=== PATIENT | female | born 1955 | race Caucasian/White ===

== ENCOUNTER 2016-11-08 13:48 | Emergency (ER) | payer BC, MEDICARE ==
[2016-11-08] MEDS ORDERED: IPRATROPIUM/ALBUTEROL (0.5MG/3MG) NEB INH ONE (14:12)
[2016-11-08] MEDS ORDERED: METHYLPREDNISOLONE PF 125MG/VIAL IVP SCH (14:15)
--- NOTE | 2016-11-08 14:17 | Emergency Department Record ---
History of Present Illness - General Chief Complaint: Cough Stated Complaint: cough,congestion, Time Seen by Provider: 11/08/16 14:02 Source: Patient Mode of Arrival: Ambulatory Limitations: No limitations - History of Present Illness Initial Comments: 61 yo female presents with cough and wheezing for about 5 days. She has a history of COPD, ESRD, prior pneumonia, AAA (repaired with an endovascular stent ). The cough has been bringing up phlegm. No blood. She has had subjective hot and cold flashes. No NVD. She was hospitalized in August and September for AAA repair with a stent and complications with seromas of the groin. PCP Venessa, Surgeon Venessa. MD Complaint: Cough, Nasal congestion Onset/Timin -: Days(s) Severity: Moderate Severity scale (1-10): 5 Consistency: Constant Improves With: Nothing Worsens With: Other (couging) Associated Symptoms: Chills, Cough, Fever - Related Data Home Medications Medication Instructions Recorded Confirmed Last Taken FA/Vit Bcomp&C/Zinc/Vitamin D3 1 tab PO DAILY 09/20/14 11/08/16 1 Day Ago [Dialyvite 800-Ultra D Tablet] Pramipexole Di-HCl [Mirapex] 0.75 mg PO BID 09/20/14 11/08/16 1 Day Ago Sevelamer Carbonate [Renvela] 3 tab PO WMEALS 09/20/14 11/08/16 1 Day Ago Furosemide [Lasix] 40 mg PO TID 03/08/15 11/08/16 1 Day Ago Albuterol Sulfate [Proair Hfa] 1 - 2 puff IH .EVERY 4-6 HOURS PRN 06/16/1511/08 1 Day Ago Metoprolol Succinate [Metoprolol 25 mg PO DAILY 07/17/16 11/08/16 1 Day Ago Succinate] Umeclidinium [place] [Incruse 62.5 mcg IH DAILY 11/08/16 11/08/16 1 Day Ago Ellipta] Vancomycin/0.9 % Sod Chloride 1.25 gm IV ASDIR 11/08/16 11/08/16 11/06/16 [Vanco 1.25 gm/250 ml-0.9% NaCl] Previous Rx's Medication Instructions Recorded Hydrocodone/Acetaminophen [[place] 1 tab PO Q8H PRN #15 tab 10/01/15 5mg/325mg] Azithromycin [Zithromax] 250 mg PO DAILY #4 tab 11/08/16 Prednisone [Prednisone 20Mg] 20 mg PO BID #10 tab 11/08/16 Allergies Allergy/AdvReac Type Severity Reaction Status Date / Time baclofen Allergy sleep Verified 11/08/16 14:05 walking cefaclor [From Ceclor] Allergy PT UNSURE Verified 11/08/16 14:05 OF REACTION clarithromycin [From Biaxin] Allergy PT UNSURE Verified 11/08/16 14:05 OF REACTION levofloxacin [From Levaquin] Allergy PT UNSURE Verified 11/08/16 14:05 OF REACTION naproxen sodium Allergy PT UNSURE Verified 11/08/16 14:05 [From Anaprox] OF REACTION piroxicam [From Feldene] Allergy PT UNSURE Verified 11/08/16 14:05 OF REACTION red dye Allergy HIVES Verified 11/08/16 14:05 succinylcholine Allergy "super Verified 11/08/16 14:05 glued my lungs together" sulfamethoxazole Allergy PT UNSURE Verified 11/08/16 14:05 [From Bactrim] OF REACTION tramadol HCl [From Ultram] Allergy PT UNSURE Verified 11/08/16 14:05 OF REACTION trimethoprim [From Bactrim] Allergy PT UNSURE Verified 11/08/16 14:05 OF REACTION venom-honey bee Allergy HIVES Verified 11/08/16 14:05 [bee venom (honey bee)] cyclobenzaprine HCl AdvReac BEHAVIORAL Verified 11/08/16 14:05 [From Flexeril] CHANGES gabapentin [From Neurontin] AdvReac "bad mojo" Verified 11/08/16 14:05 promethazine HCl AdvReac restless Verified 11/08/16 14:05 [From Phenergan] legs Travel Screening - Travel/Exposure Within Last 30 Days Have you traveled within the last 30 days?: No - Travel/Exposure Within Last Year Have you traveled outside the [place] in the last year?: No - Additonal Travel Details Have you been exposed to anyone with a communicable illness?: No - Travel Symptoms Symptom Screening: None Review of Systems Constitutional: Reports: Chills, Fever. Denies: Weakness Eyes: Denies: Eye discharge, Eye pain, Photophobia, Vision change ENT: Reports: Congestion Respiratory: Reports: Cough, Dyspnea, Wheezes. Denies: Hemoptysis, Stridor Cardiovascular: Denies: Chest pain, Palpitations, Syncope Endocrine: Denies: Polydipsia, Polyuria Gastrointestinal: Denies: Abdominal pain, Diarrhea, Nausea, Vomiting Genitourinary: Denies: Dysuria, Urgency Musculoskeletal: Denies: Arthralgia, Back pain, Myalgia, Neck pain Skin: Denies: Change in color Neurological: Denies: Confusion, Headache Psychiatric: Denies: Anxiety Hematological/Lymphatic: Denies: Blood Clots, Easy bleeding, Easy bruising, Swollen glands Past Medical History - SOCIAL HISTORY Smoking Status: Current every day smoker Alcohol Use: None Drug Use: None - RESPIRATORY Hx Respiratory Disorders: Yes Hx COPD: Yes Hx Pulmonary Embolism: Yes - CARDIOVASCULAR Hx Cardio Disorders: Yes Hx Abnormal EKG: Yes Comment:: heart murmur in April 2014, AAA - NEURO Hx Neuro Disorders: No - GI Hx GI Disorders: Yes Comment:: AAA - Hx Genitourinary Disorders: Yes Hx Dialysis: Yes (M_W_F) Hx Renal Disease: Yes (polycystic kidney disease) Comment:: PKD. prolapsed bladder - ENDOCRINE Hx Endocrine Disorders: No - MUSCULOSKELETAL Hx Musculoskeletal Disorders: Yes Hx Arthritis: Yes - PSYCH Hx Psych Problems: Yes Hx Depression: Yes (r/t dialysis) - HEMATOLOGY/ONCOLOGY Hx Hematology/Oncology Disorders: Yes Hx Clotting Problems: Yes Family Medical History Any Significant Family History?: Yes Hx Alcohol Use: Father, Brother/Sister Hx Cancer: Grandparents Hx Dementia: Father Hx Diabetes: Mother Hx Heart Disease: Father, Mother Hx HTN: Mother Hx Kidney Disease: Mother, Brother/Sister, Grandparents Hx Resp Disorders: Father Hx Stroke: Father, Mother Physical Exam - General General Appearance: Alert, Oriented x3, Cooperative, No acute distress Limitations: No limitations - Head Head exam: Normal inspection - Eye Eye exam: Normal appearance, PERRL. negative: Conjunctival injection, Scleral icterus - ENT ENT exam: Normal exam, Mucous membranes moist Ear exam: Normal external inspection Nasal Exam: Discharge. negative: Normal inspection Mouth exam: Normal external inspection Teeth exam: Normal inspection Throat exam: Normal inspection - Neck Neck exam: Normal inspection, Full ROM. negative: Tenderness - Respiratory Respiratory exam: Decreased breath sounds, Rhonchi, Wheezes (diffuse, moderate throughout). negative: Accessory muscle use, Prolonged expiratory, Respiratory distress - Cardiovascular Cardiovascular Exam: Regular rate, Normal rhythm, Normal heart sounds Peripheral Pulses: 2+: Radial (R), Radial (L) - GI/Abdominal GI/Abdominal exam: Soft. negative: Distended, Guarding, Rebound, Rigid, Tenderness - Rectal Rectal exam: Deferred - exam: Deferred - Extremities Extremities exam: Normal inspection, Full ROM, Normal capillary refill, Other ( Drain in right surgical sight). negative: Tenderness - Back Back exam: Reports: Normal inspection, Full ROM. Denies: Muscle spasm, Rash noted, Tenderness - Neurological Neurological exam: Alert, Normal gait, Oriented X3, Reflexes normal - Psychiatric Psychiatric exam: Normal affect, Normal mood - Skin Skin exam: Dry, Intact, Normal color, Warm Course Vital Signs 11/08/16 13:52 Temperature 97.3 F L Pulse Rate 87 Respiratory 20 Rate Blood Pressure 149/81 Pulse Ox 93 L - Reevaluation(s) Reevaluation #1: DC summary requested from [facility] 11/08/16 14:17 Reevaluation #2: The labs were reviewed No acute changes of the CBC. Chronic anemia CMP with mild increase of K at 5.8 CXR No infiltrate, mild PVC. 11/08/16 15:35 Reevaluation #3: The patient is feeling much better. We discussed options. Her labs are at baseline and she is not hypoxic She prefers DC home with 7am HD to follow We discussed home care with Zithromax, Prednsione, and Albuterol Q4H She and her daughter are both in favor of this plan. 11/08/16 16:09 Medical Decision Making - Lab Data Result diagrams: 11/08/16 14:30 11/08/16 14:30 Disposition Disposition: Discharge Clinical Impression: COPD exacerbation Disposition: Home, Self-Care Condition: (2) Stable Instructions: COPD Exacerbation, Learning Developer (GEN) Additional Instructions: Immediately return to the ED if worse or any new symptoms or concerns Go to dialysis in the morning as scheduled Prescriptions: Prednisone [Prednisone 20Mg] 20 mg PO BID #10 tab Azithromycin [Zithromax] 250 mg PO DAILY #4 tab Forms: Patient Portal Access Time of Disposition: 16:13
[2016-11-08 14:37] LABS: BASO % 0.2 % (0-6); EOS % 0.9 % (0-6); GRAN % 69.5 % (47-80); HEMATOCRIT 32.3 % (35.0-47.0); HEMOGLOBIN 10.4 gm/dl (11.6-16.0); LYMPH % 20.7 % (16-45); MEAN CELL VOLUME 101.3 fl (81-97); MEAN CORPUSCULAR HEMOGLOBIN 32.6 pg (27-33); MEAN CORPUSCULAR HGB CONC 32.2 g/dl (32-36); MEAN PLATELET VOLUME 9.9 fl (7.4-10.4); MONO % 8.7 % (0-9); RED BLOOD COUNT 3.19 M/uL (3.80-5.40); RED CELL DISTRIBUTION WIDTH 15.2 % (11.5-14.5); WHITE BLOOD COUNT W/O DIFF 4.6 K/uL (4.2-12.2)
[2016-11-08 14:41] LABS: PLATELET COUNT 91 K/uL (130-400)
[2016-11-08 14:54] LABS: INR 0.97; PARTIAL THROMBOPLASTIN TIME 28.2 SECONDS (24.5-39.1)
[2016-11-08 14:55] LABS: ALB/GLOB RATIO 1.4 (1.1-1.8); ALBUMIN 3.6 gm/dL (3.5-5.0); ANION GAP 14.8 (7-16); BILIRUBIN,TOTAL 1.18 mg/dL (0.2-1.3); CARBON DIOXIDE 23.2 mmol/L (22-30); CREATININE 7.3 mg/dL (0.52-1.04); TOTAL PROTEIN 6.2 gm/dL (6.3-8.2)
[2016-11-08] MEDS ORDERED: AZITHROMYCIN 500 MG TABLET PO ONE (16:10)
--- NOTE | 2016-11-12 10:55 | RADIOLOGY REPORT ---
EXAM: CHEST HISTORY: SHORTNESS OF BREATH. TECHNIQUE: Two views of the chest were obtained. Comparison: 06/18/15. FINDINGS: The cardiac silhouette is enlarged. There is prominence of the interstitial lung markings increased from the patient's previous study. There are small bilateral pleural effusions. No focal area of lung consolidation identified. The lungs appear hyperinflated. IMPRESSION: 1. PROMINENCE OF THE INTERSTITIAL LUNG MARKINGS AND SMALL BILATERAL PLEURAL EFFUSIONS LIKELY THE RESULT OF PULMONARY VASCULAR CONGESTION. 2. THE LUNGS ARE HYPERINFLATED. JOB NUMBER: [id number] [facility]
== END 2016-11-08 16:47 | disposition home or self-care (01) ==
LOC: ER 13:48
DX: J44.1 Chronic obstructive pulmonary disease with (acute) exacerbation (principal); R06.02 Shortness of breath; F17.210 Nicotine dependence, cigarettes, uncomplicated; D64.9 Anemia, unspecified
CPT/HCPCS: 71020; 80053; 85025; 85610; 85730; 94640; 96374; 99284; J2930

== ENCOUNTER 2017-02-28 12:43 | Emergency (ER) | payer MEDICARE, BC, MEDICAID ==
--- NOTE | 2017-02-28 12:55 | Emergency Department Record ---
History of Present Illness - General Chief Complaint: Difficulty Breathing Stated Complaint: NAM/COPD Time Seen by Provider: 02/28/17 12:54 Source: Patient Mode of Arrival: Ambulatory Limitations: No limitations - History of Present Illness Initial Comments: The patient is here due to trouble breathing and wheezing for 7-8 hours. She denies any CP but is having a cough. The patient is a renal failure patient and does get hemodialysis 3 times a week. She last had dialysis 2 days ago but did not complete her run due to vomiting. She stopped it about 40 minutes short. Now she feels like she is retaining fluid. There has been no fever, chills, or headaches. The patient states her HR was 106 at home and her RA biox 93% so she became concerned. MD Complaint: Cough, Shortness of breath Onset/Timin -: Hour(s) Consistency: Intermittent Worsens With: Nothing Associated Symptoms: Cough, Sputum production, Other Treatments Prior to Arrival: None, Other - Related Data Home Oxygen Therapy: Yes (as needed) Home Oxygen Amount: 2 Liters Home Medications Medication Instructions Recorded Confirmed Last Taken FA/Vit Bcomp&C/Zinc/Vitamin D3 1 tab PO DAILY 09/20/14 02/28/17 02/28/17 [Dialyvite 800-Ultra D Tablet] Pramipexole Di-HCl [Mirapex] 0.75 mg PO BID 09/20/14 02/28/17 02/28/17 Sevelamer Carbonate [Renvela] 3 tab PO WMEALS 09/20/14 02/28/17 02/28/17 Furosemide [Lasix] 40 mg PO TID 03/08/15 02/28/17 02/28/17 Albuterol Sulfate [Proair Hfa] 1 - 2 puff IH .EVERY 4-6 HOURS PRN 06/16/1502/2802/28/17 Umeclidinium [place] [Incruse 62.5 mcg IH DAILY 11/08/16 02/28/17 02/28/17 Ellipta] Acetaminophen [Arthritis Pain 650 mg PO ASDIR 02/28/17 02/28/17 Unknown Relief] Acetaminophen [Tylenol Extra 500 mg PO ASDIR 02/28/17 02/28/17 Unknown Strength] Guaifenesin [Mucinex] 600 mg PO BID 02/28/17 02/28/17 Unknown Rotigotine [Neupro] 1 each TD DAILY 02/28/17 02/28/17 Unknown Sodium Polystyrene Sulfon/Sorb 15 gm PO WEEKLY 02/28/17 02/28/17 Unknown [Kionex 15 gm/60 ml Suspension] Previous Rx's Medication Instructions Recorded Hydrocodone/Acetaminophen [[place] 1 tab PO Q8H PRN #15 tab 10/01/15 5mg/325mg] Allergies Allergy/AdvReac Type Severity Reaction Status Date / Time baclofen Allergy sleep Verified 02/28/17 12:57 walking cefaclor [From Ceclor] Allergy PT UNSURE Verified 02/28/17 12:57 OF REACTION clarithromycin [From Biaxin] Allergy PT UNSURE Verified 02/28/17 12:57 OF REACTION levofloxacin [From Levaquin] Allergy PT UNSURE Verified 02/28/17 12:57 OF REACTION naproxen sodium Allergy PT UNSURE Verified 02/28/17 12:57 [From Anaprox] OF REACTION piroxicam [From Feldene] Allergy PT UNSURE Verified 02/28/17 12:57 OF REACTION red dye Allergy HIVES Verified 02/28/17 12:57 succinylcholine Allergy "super Verified 02/28/17 12:57 glued my lungs together" sulfamethoxazole Allergy PT UNSURE Verified 02/28/17 12:57 [From Bactrim] OF REACTION tramadol HCl [From Ultram] Allergy PT UNSURE Verified 02/28/17 12:57 OF REACTION trimethoprim [From Bactrim] Allergy PT UNSURE Verified 02/28/17 12:57 OF REACTION venom-honey bee Allergy HIVES Verified 02/28/17 12:57 [bee venom (honey bee)] cyclobenzaprine HCl AdvReac BEHAVIORAL Verified 02/28/17 12:57 [From Flexeril] CHANGES gabapentin [From Neurontin] AdvReac "bad mojo" Verified 02/28/17 12:57 promethazine HCl AdvReac restless Verified 02/28/17 12:57 [From Phenergan] legs Travel Screening - Travel/Exposure Within Last 30 Days Have you traveled within the last 30 days?: No Review of Systems Constitutional: Denies: Chills, Fever Eyes: Denies: Eye discharge ENT: Reports: Congestion Respiratory: Reports: Cough, Dyspnea. Denies: Hemoptysis Cardiovascular: Denies: Chest pain Past Medical History - SOCIAL HISTORY Smoking Status: Current every day smoker Drug Use: None - RESPIRATORY Hx Respiratory Disorders: Yes Hx COPD: Yes Hx Pulmonary Embolism: Yes - CARDIOVASCULAR Hx Cardio Disorders: Yes Hx Abnormal EKG: Yes Comment:: heart murmur in April 2014, AAA - NEURO Hx Neuro Disorders: No - GI Hx GI Disorders: Yes Comment:: AAA - Hx Genitourinary Disorders: Yes Hx Dialysis: Yes (M_W_F) Hx Renal Disease: Yes (polycystic kidney disease) Comment:: PKD. prolapsed bladder - ENDOCRINE Hx Endocrine Disorders: No - MUSCULOSKELETAL Hx Musculoskeletal Disorders: Yes Hx Arthritis: Yes - PSYCH Hx Psych Problems: Yes Hx Depression: Yes (r/t dialysis) - HEMATOLOGY/ONCOLOGY Hx Hematology/Oncology Disorders: Yes Hx Clotting Problems: Yes Family Medical History Hx Alcohol Use: Father, Brother/Sister Hx Cancer: Grandparents Hx Dementia: Father Hx Diabetes: Mother Hx Heart Disease: Father, Mother Hx HTN: Mother Hx Kidney Disease: Mother, Brother/Sister, Grandparents Hx Resp Disorders: Father Hx Stroke: Father, Mother Physical Exam - General General Appearance: Alert, Oriented x3, Cooperative, No acute distress - Head Head exam: Atraumatic, Normocephalic, Normal inspection - Eye Eye exam: Normal appearance, PERRL - ENT Throat exam: Normal inspection. negative: Tonsillar erythema, Tonsillar exudate - Neck Neck exam: Normal inspection, Full ROM. negative: Tenderness - Respiratory Respiratory exam: Accessory muscle use (mild.), Rales, Wheezes. negative: Normal lung sounds bilaterally, Respiratory distress, Stridor - Cardiovascular Cardiovascular Exam: Regular rate, Normal rhythm, Gallop (S3), Tachycardia - GI/Abdominal GI/Abdominal exam: Soft, Normal bowel sounds. negative: Tenderness - Extremities Extremities exam: Pedal edema (2+). negative: Normal inspection - Neurological Neurological exam: Alert, Normal gait. negative: Abnormal gait, Motor sensory deficit Course Vital Signs 02/28/17 12:46 Temperature 97.6 F Pulse Rate 94 H Respiratory 24 Rate Blood Pressure 150/93 Pulse Ox 93 L - Reevaluation(s) Reevaluation #1: The patient is doing well at this time on oxygen and after the neb tx. She is breathing easier and denies any pain. I did discuss the issues with the patient' s Nephrology group instrument and control service person physician who is Dr. Betancourt in AA at [facility] and he would like her transferred there for emergent hemodialysis. 02/28/17 14:10 Reevaluation #2: The patient now is reluctant to go to . She would like us to try to admit her to [place]. 02/28/17 14:36 Reevaluation #3: I did discuss the case with Dr. Roper (Nephrology) at [facility] and he does agree to perform hemodialysis if the patient can be transported to the ER at [facility]. The patient does also agree to the plan. I then did discuss the case with Dr. Chirinos in the ER and he does accept the patient in an ER to ER transfer. I did discuss the transfer at length with the patient and did recommend transfer by Ambulance. The patient is very adamant about refusing the ambulance and wants her daughters to drive her there. I then discussed the risks of leaving by car which include worsening shortness of breath, respiratory failure , heart failure, disability and and the patient accepts the risks. She understands we cannot be held liable for NOT tranferring her by ambulance and will leave AMA. 02/28/17 14:43 Medical Decision Making - Data Complexity MDM Data: Labs Ordered and/or Reviewed, X-Ray Ordered and/or Reviewed, EKG Ordered and/or Reviewed - Lab Data Result diagrams: 02/28/17 13:14 02/28/17 13:14 - EKG Data -: EKG Interpreted by Me EKG: No Acute Changes, Unchanged From Previous - Radiology Data Radiology results: Report reviewed, Image reviewed (CXR: CMG with CHF and bilateral effusions.) Disposition Disposition: Transfer Clinical Impression: Renal failure CHF (congestive heart failure) Qualifiers: Congestive heart failure type: unspecified congestive heart failure type Congestive heart failure chronicity: unspecified congestive heart failure chronicity Qualified Code(s): I50.9 - Heart failure, unspecified Disposition: Against Medical Advice Transfer To: [facility] Reason For Transfer: Dialysis Accepting Physician: Cassia Time Discussed w/Accepting Physician: 14:52 Condition: (2) Stable Forms: Patient Portal Access Time of Disposition: 14:52
[2017-02-28 13:18] LABS: BASO % 0.5 % (0-6); EOS % 2.1 % (0-6); HEMATOCRIT 37.7 % (35.0-47.0); HEMOGLOBIN 12.1 gm/dl (11.6-16.0); LYMPH % 18.3 % (16-45); MEAN CELL VOLUME 101.3 fl (81-97); MEAN CORPUSCULAR HEMOGLOBIN 32.5 pg (27-33); MEAN CORPUSCULAR HGB CONC 32.1 g/dl (32-36); MEAN PLATELET VOLUME 10.6 fl (7.4-10.4); MONO % 8.1 % (0-9); PLATELET COUNT 132 K/uL (130-400); RED BLOOD COUNT 3.72 M/uL (3.80-5.40); RED CELL DISTRIBUTION WIDTH 16.6 % (11.5-14.5); WHITE BLOOD COUNT W/O DIFF 6.3 K/uL (4.2-12.2)
[2017-02-28 13:30] LABS: ANION GAP 14.6 (7-16); CARBON DIOXIDE 23.4 mmol/L (22-30)
[2017-02-28 13:32] LABS: INR 0.94; PARTIAL THROMBOPLASTIN TIME 22.1 SECONDS (24.5-39.1); PROTHROMBIN TIME (PATIENT) 10.6 SECONDS (9.5-12.1)
[2017-02-28] MEDS ORDERED: IPRATROPIUM/ALBUTEROL (0.5MG/3MG) NEB INH ONE (13:40)
[2017-02-28 13:53] LABS: CKMB 2.6 ug/L (0-6)
[2017-02-28] MEDS ORDERED: FUROSEMIDE IV 40MG/4ML VIAL IVP ONE (14:24)
== END 2017-02-28 15:11 | disposition left against medical advice (07) ==
LOC: ER 12:43
DX: N18.6 End stage renal disease (principal); Z99.2 Dependence on renal dialysis; I50.9 Heart failure, unspecified; J44.9 Chronic obstructive pulmonary disease, unspecified; R06.02 Shortness of breath; R11.11 Vomiting without nausea; F17.210 Nicotine dependence, cigarettes, uncomplicated
CPT/HCPCS: 71010; 80048; 82550; 82553; 85025; 85610; 85730; 93005; 93010; 94640; 96374; 99285; J1940

== ENCOUNTER 2017-06-08 22:50 | Emergency (ER) | payer MEDICARE, BC, MEDICAID ==
--- NOTE | 2017-06-08 23:43 | Emergency Department Record ---
History of Present Illness - General Chief Complaint: Animal Bite Stated Complaint: ANIMAL BITE Time Seen by Provider: 06/08/17 23:21 Source: Patient Mode of Arrival: Ambulatory Limitations: No limitations - History of Present Illness Initial Comments: The patient is here due to sustaining an injury to the L hand dorsally. Her pet rabbit scratched the back of her L hand and she has multiple skin tears. She states her Td is UTD. Complaint: Other Onset/Timin -: Hour(s) Animal: Other Description: Household pet Mechanism: Scratch Severity scale (1-10): 5 Context: Other Associated Symptoms: None Treatments Prior to Arrival: Wound dressing(s), Irrigation - Related Data Patient Tetanus UTD (within 5 yrs): Yes Home Medications Medication Instructions Recorded Confirmed Last Taken [place] AC/Vit Bcomp,C/Zn/Vit D3 1 tab PO DAILY 09/20/14 06/08/17 02/28/17 [Dialyvite 800-Ultra D Tablet] Pramipexole Di-HCl [Mirapex] 0.75 mg PO BID 09/20/14 06/08/17 02/28/17 Sevelamer Carbonate [Renvela] 3 tab PO WMEALS 09/20/14 06/08/17 02/28/17 Furosemide [Lasix] 80 mg PO TID 03/08/15 06/08/17 02/28/17 Albuterol Sulfate [Proair Hfa] 1 - 2 puff IH .EVERY 4-6 HOURS PRN 06/16/1506/0802/28/17 Umeclidinium [place] [Incruse 62.5 mcg IH DAILY 11/08/16 06/08/17 02/28/17 Ellipta] Guaifenesin [Mucinex] 600 mg PO BID 02/28/17 06/08/17 Unknown Rotigotine [Neupro] 1 each TD DAILY 02/28/17 06/08/17 Unknown Sodium Polystyrene Sulfon/Sorb 15 gm PO WEEKLY 02/28/17 02/28/17 Unknown [Kionex 15 gm/60 ml Suspension] Previous Rx's Medication Instructions Recorded Hydrocodone/Acetaminophen [[place] 1 tab PO Q8H PRN #15 tab 10/01/15 5mg/325mg] Cephalexin [Keflex] 500 mg PO DAILY #2 cap 06/09/17 Allergies Allergy/AdvReac Type Severity Reaction Status Date / Time baclofen Allergy sleep Verified 02/28/17 12:57 walking cefaclor [From Ceclor] Allergy PT UNSURE Verified 02/28/17 12:57 OF REACTION clarithromycin [From Biaxin] Allergy PT UNSURE Verified 02/28/17 12:57 OF REACTION levofloxacin [From Levaquin] Allergy PT UNSURE Verified 02/28/17 12:57 OF REACTION naproxen sodium Allergy PT UNSURE Verified 02/28/17 12:57 [From Anaprox] OF REACTION piroxicam [From Feldene] Allergy PT UNSURE Verified 02/28/17 12:57 OF REACTION red dye Allergy HIVES Verified 02/28/17 12:57 succinylcholine Allergy "super Verified 02/28/17 12:57 glued my lungs together" sulfamethoxazole Allergy PT UNSURE Verified 02/28/17 12:57 [From Bactrim] OF REACTION tramadol HCl [From Ultram] Allergy PT UNSURE Verified 02/28/17 12:57 OF REACTION trimethoprim [From Bactrim] Allergy PT UNSURE Verified 02/28/17 12:57 OF REACTION venom-honey bee Allergy HIVES Verified 02/28/17 12:57 [bee venom (honey bee)] cyclobenzaprine HCl AdvReac BEHAVIORAL Verified 02/28/17 12:57 [From Flexeril] CHANGES gabapentin [From Neurontin] AdvReac "bad mojo" Verified 02/28/17 12:57 promethazine HCl AdvReac restless Verified 02/28/17 12:57 [From Phenergan] legs Travel Screening - Travel/Exposure Within Last 30 Days Have you traveled within the last 30 days?: No - Travel/Exposure Within Last Year Have you traveled outside the [place] in the last year?: No - Additonal Travel Details Have you been exposed to anyone with a communicable illness?: No - Travel Symptoms Symptom Screening: None Past Medical History - SOCIAL HISTORY Smoking Status: Current every day smoker Alcohol Use: None Drug Use: None - RESPIRATORY Hx Respiratory Disorders: Yes Hx COPD: Yes Hx Pulmonary Embolism: Yes - CARDIOVASCULAR Hx Cardio Disorders: Yes Hx Abnormal EKG: Yes Comment:: heart murmur in April 2014, AAA - NEURO Hx Neuro Disorders: No - GI Hx GI Disorders: Yes Comment:: AAA - Hx Genitourinary Disorders: Yes Hx Dialysis: Yes (M_W_F) Hx Renal Disease: Yes (polycystic kidney disease) Comment:: PKD. prolapsed bladder. end stage renal - ENDOCRINE Hx Endocrine Disorders: No - MUSCULOSKELETAL Hx Musculoskeletal Disorders: Yes Hx Arthritis: Yes Comment:: restless leg syndrome - PSYCH Hx Psych Problems: Yes Hx Depression: Yes (r/t dialysis) - HEMATOLOGY/ONCOLOGY Hx Hematology/Oncology Disorders: Yes Hx Clotting Problems: Yes Comment:: visually impared Family Medical History Any Significant Family History?: Yes Hx Alcohol Use: Father, Brother/Sister Hx Cancer: Grandparents Hx Dementia: Father Hx Diabetes: Mother Hx Heart Disease: Father, Mother Hx HTN: Mother Hx Kidney Disease: Mother, Brother/Sister, Grandparents Hx Resp Disorders: Father Hx Stroke: Father, Mother Physical Exam - General General Appearance: Alert, Cooperative, No acute distress - Head Head exam: Atraumatic, Normocephalic, Normal inspection - Extremities Extremities exam: Full ROM, Tenderness. negative: Normal inspection (There are multiple skin tears to the dorsal L hand. The affected skin is very thin and chronically discolored.) - Neurological Neurological exam: Normal gait. negative: Abnormal gait, Motor sensory deficit Course Vital Signs 06/08/17 23:11 Temperature 98.3 F Pulse Rate 85 Respiratory 20 Rate Blood Pressure 147/84 Pulse Ox 91 L - Reevaluation(s) Reevaluation #1: Procedure note: The dorsal L hand lacs were anesth. with TLE. The wound were then cleansed with sterile water and betadine. The wounds area all very superficial and the skin extremely thin. Due to that fact the mail flap was trimmed minimally and no sutures were placed. 06/09/17 00:02 Disposition Disposition: Discharge Clinical Impression: Animal scratch Disposition: Home, Self-Care Condition: (1) Good Instructions: Animal Bite (ED) Additional Instructions: Please leave the bandage in place clean and dry until Wednesday. Please wash the wound daily after Wednesday and dress with Abx ointment daily until healed. Take the Keflex as directed after HD. Return to the ER for any signs of infection. Prescriptions: Cephalexin [Keflex] 500 mg PO DAILY #2 cap Forms: Patient Portal Access Time of Disposition: 00:06 Quality - Quality Measures Quality Measures: N/A - Blood Pressure Screening View Details: Yes Blood Pressure Classification: Pre-Hypertensive BP Reading Systolic Measurement: 147 Diastolic Measurement: 84 Screening for High Blood Pressure: < Pre-Hypertensive BP, F/U Documented > [ [id number]] Pre-Hypertensive Follow-up Interventions: Follow-up with rescreen every year.
[2017-06-08] MEDS: TOPICAL LIDOCAINE W/ EPI 5 ML TOP ONE (23:49)
[2017-06-09] MEDS: CEPHALEXIN 500 MG CAPSULE PO STA (00:11)
== END 2017-06-09 00:16 | disposition home or self-care (01) ==
LOC: ER 22:50
DX: S60.512A Abrasion of left hand, initial encounter (principal); Y93.K9 Activity, other involving animal care; Y92.009 Unspecified place in unspecified non-institutional (private) residence as the place of occurrence of the external cause
CPT/HCPCS: 99283

== ENCOUNTER 2017-11-05 00:03 | Emergency (ER) | payer MEDICARE, BC, MEDICAID ==
--- NOTE | 2017-11-05 00:59 | Emergency Department Record ---
History of Present Illness - General Chief complaint: Lower Extremity Pain Stated complaint: "I THINK IM GETTING CELLULITIS" Time Seen by Provider: 11/05/17 00:06 Source: Patient Mode of Arrival: Wheelchair Limitations: No limitations - History of Present Illness Initial comments: pt thinks she has cellulitis again. she has a tender, red, hot lower leg and also has a second spot of tenderness in the calf. she has dialysis tomorrow. she has a complex health hx and is on plavix and asa. shes had a recent mi, AAA repair, chf MD Complaint: Extremity pain, Extremity swelling Onset/Timin -: Hour(s) Location: Right, Lower Leg Severity scale (1-10): 8 Quality: Aching Consistency: Constant Improves with: Nothing Worsens with: Palpation, Weight bearing Associated Symptoms: Denies other symptoms - Related Data Home Medications Medication Instructions Recorded Confirmed Last Taken Aspirin 81 mg PO DAILY 11/05/17 11/05/17 Unknown Clopidogrel Bisulfate [Clopidogrel] 75 mg PO DAILY 11/05/17 11/05/17 Unknown Midodrine HCl 10 mg PO ASDIR PRN 11/05/17 11/05/17 Unknown Previous Rx's Medication Instructions Recorded Hydrocodone/Acetaminophen [[place] 1 tab PO Q8H PRN #15 tab 10/01/15 5mg/325mg] Allergies Allergy/AdvReac Type Severity Reaction Status Date / Time baclofen Allergy sleep Verified 02/28/17 12:57 walking cefaclor [From Ceclor] Allergy PT UNSURE Verified 02/28/17 12:57 OF REACTION clarithromycin [From Biaxin] Allergy PT UNSURE Verified 02/28/17 12:57 OF REACTION levofloxacin [From Levaquin] Allergy PT UNSURE Verified 02/28/17 12:57 OF REACTION naproxen sodium Allergy PT UNSURE Verified 02/28/17 12:57 [From Anaprox] OF REACTION piroxicam [From Feldene] Allergy PT UNSURE Verified 02/28/17 12:57 OF REACTION red dye Allergy HIVES Verified 02/28/17 12:57 succinylcholine Allergy "super Verified 02/28/17 12:57 glued my lungs together" sulfamethoxazole Allergy PT UNSURE Verified 02/28/17 12:57 [From Bactrim] OF REACTION tramadol HCl [From Ultram] Allergy PT UNSURE Verified 02/28/17 12:57 OF REACTION trimethoprim [From Bactrim] Allergy PT UNSURE Verified 02/28/17 12:57 OF REACTION venom-honey bee Allergy HIVES Verified 02/28/17 12:57 [bee venom (honey bee)] cyclobenzaprine HCl AdvReac BEHAVIORAL Verified 02/28/17 12:57 [From Flexeril] CHANGES gabapentin [From Neurontin] AdvReac "bad mojo" Verified 02/28/17 12:57 promethazine HCl AdvReac restless Verified 02/28/17 12:57 [From Phenergan] legs Travel Screening - Travel/Exposure Within Last 30 Days Have you traveled within the last 30 days?: No - Travel Symptoms Symptom Screening: None Review of Systems Reviewed: No additional complaints except as noted below Constitutional: Reports: As per HPI. Denies: Chills, Fever, Malaise, Night sweats, Weakness, Weight change Eyes: Reports: As per HPI. Denies: Eye discharge, Eye pain, Photophobia, Vision change ENT: Reports: As per HPI. Denies: Congestion, Dental pain, Ear pain, Epistaxis , Hearing loss, Throat pain Respiratory: Reports: As per HPI. Denies: Cough, Dyspnea, Hemoptysis, Stridor, Wheezes Cardiovascular: Reports: As per HPI. Denies: Arrhythmia, Chest pain, Dyspnea on exertion, Edema, Murmurs, Orthopnea, Palpitations, Paroxysmal nocturnal dyspnea, Rheumatic Fever, Syncope Endocrine: Reports: As per HPI. Denies: Fatigue, Heat or cold intolerance, Polydipsia, Polyuria Gastrointestinal: Reports: As per HPI. Denies: Abdominal pain, Constipation, Diarrhea, Hematemesis, Hematochezia, Melena, Nausea, Vomiting Genitourinary: Reports: As per HPI. Denies: Abnormal menses, Discharge, Dyspareunia, Dysuria, Frequency, Hematuria, Incontinence, Retention, Urgency Musculoskeletal: Reports: As per HPI. Denies: Arthralgia, Back pain, Gout, Joint swelling, Myalgia, Neck pain Skin: Reports: As per HPI. Denies: Bruising, Change in color, Change in hair/ nails, Lesions, Pruritus, Rash Neurological: Reports: As per HPI. Denies: Abnormal gait, Confusion, Headache, Numbness, Paresthesias, Seizure, Tingling, Tremors, Vertigo, Weakness Psychiatric: Reports: As per HPI. Denies: Anxiety, Auditory hallucinations, Depression, Homicidal thoughts, Suicidal thoughts, Visual hallucinations Hematological/Lymphatic: Reports: As per HPI. Denies: Anemia, Blood Clots, Easy bleeding, Easy bruising, Swollen glands Past Medical History - SOCIAL HISTORY Smoking Status: Current every day smoker - RESPIRATORY Hx Respiratory Disorders: Yes Hx COPD: Yes Hx Pulmonary Embolism: Yes - CARDIOVASCULAR Hx Cardio Disorders: Yes Hx Abnormal EKG: Yes Hx Cardiac Cath: Yes (5 stents) Hx Vascular Disease: (L arterial heart valve needs to be replaced) Comment:: heart murmur in April 2014, AAA - NEURO Hx Neuro Disorders: No Comment:: legally blind now 10/2017 - GI Hx GI Disorders: Yes Comment:: AAA - Hx Genitourinary Disorders: Yes Hx Dialysis: Yes (M_W_F) Hx Renal Disease: Yes (polycystic kidney disease;) Comment:: PKD. prolapsed bladder. end stage renal - ENDOCRINE Hx Endocrine Disorders: No - MUSCULOSKELETAL Hx Musculoskeletal Disorders: Yes Hx Arthritis: Yes Comment:: restless leg syndrome - PSYCH Hx Psych Problems: Yes Hx Depression: Yes (r/t dialysis) - HEMATOLOGY/ONCOLOGY Hx Hematology/Oncology Disorders: Yes Hx Clotting Problems: Yes Comment:: visually impared Family Medical History Any Significant Family History?: Yes Hx Alcohol Use: Father, Brother/Sister Hx Cancer: Grandparents Hx Dementia: Father Hx Diabetes: Mother Hx Heart Disease: Father, Mother Hx HTN: Mother Hx Kidney Disease: Mother, Brother/Sister, Grandparents Hx Resp Disorders: Father Hx Stroke: Father, Mother Physical Exam - General General Appearance: Alert, Oriented x3, Cooperative, Mild distress - Head Head exam: Normal inspection - Eye Eye exam: Normal appearance, PERRL, EOMI Pupils: Normal accommodation - ENT ENT exam: Normal exam, Mucous membranes moist, Normal external ear exam, Normal orophraynx Ear exam: Normal external inspection. negative: External canal tenderness Nasal Exam: Normal inspection. negative: Discharge, Sinus tenderness Mouth exam: Normal external inspection, Tongue normal Teeth exam: Normal inspection. negative: Dental caries Throat exam: Normal inspection. negative: Tonsillar erythema, Tonsillar exudate - Neck Neck exam: Normal inspection, Full ROM. negative: Tenderness - Respiratory Respiratory exam: Normal lung sounds bilaterally. negative: Respiratory distress - Cardiovascular Cardiovascular Exam: Normal rhythm, Normal heart sounds, Tachycardia - GI/Abdominal GI/Abdominal exam: Soft, Normal bowel sounds. negative: Tenderness - Rectal Rectal exam: Deferred - exam: Deferred - Extremities Extremities exam: Full ROM, Normal capillary refill, Pedal edema, Tenderness Image of Full Body: 1 - swelling, tenderness, erythema, heat - Back Back exam: Reports: Normal inspection, Full ROM. Denies: Muscle spasm, Rash noted, Tenderness - Neurological Neurological exam: Alert, CN II-XII intact, Normal gait, Oriented X3 - Psychiatric Psychiatric exam: Normal affect, Normal mood - Skin Skin exam: Dry, Intact, Normal color, Warm Course Vital Signs 11/05/17 00:15 Temperature 98.3 F Pulse Rate [ 103 H Pulse Ox Probe] Respiratory 20 Rate Blood Pressure 149/78 [Right Arm] Pulse Ox 92 L Medical Decision Making - Lab Data Result diagrams: 11/05/17 00:56 11/05/17 00:56 Disposition Disposition: Transfer Clinical Impression: Cellulitis of leg Qualifiers: Laterality: right Qualified Code(s): L03.115 - Cellulitis of right lower limb Disposition: Acute Care Hospital Transfer Transfer To: [facility] Reason For Transfer: dialysis pt w cellulitis that needs doppler Accepting Physician: sinkoff Time Discussed w/Accepting Physician: 01:34 Forms: Patient Portal Access Quality - Quality Measures Quality Measures: N/A - Blood Pressure Screening Does Patient Have Any of the Following: Active Dx of HTN Blood Pressure Classification: Hypertensive Reading Systolic Measurement: 149 Diastolic Measurement: 78 Screening for High Blood Pressure: Patient Exclusion, Hx of HTN [G9744]
[2017-11-05 01:06] LABS: HEMATOCRIT 37.1 % (35.0-47.0); HEMOGLOBIN 12.5 gm/dl (11.6-16.0); MEAN CELL VOLUME 105.1 fl (81-97); MEAN CORPUSCULAR HEMOGLOBIN 35.4 pg (27-33); MEAN CORPUSCULAR HGB CONC 33.7 g/dl (32-36); MEAN PLATELET VOLUME 10.3 fl (7.4-10.4); PLATELET COUNT 130 K/uL (130-400); RED BLOOD COUNT 3.53 M/uL (3.80-5.40); RED CELL DISTRIBUTION WIDTH 15.8 % (11.5-14.5); WHITE BLOOD COUNT W/O DIFF 9.2 K/uL (4.2-12.2)
[2017-11-05] MEDS ORDERED: MORPHINE SULFATE 5 MG/ML PFS IVP ONE (01:10)
[2017-11-05 01:15] LABS: CREATININE 7.2 mg/dL (0.5-0.9)
[2017-11-05] MEDS ORDERED: HYDROMORPHONE HCL 1 MG/ML SYRINGE IVP ONE (01:19)
[2017-11-05] MEDS ORDERED: CEFTRIAXONE SODIUM 1 GM in 0.9 % SODIUM CHLORIDE 100ML 100 ML IVPB ONE (01:34)
== END 2017-11-05 02:04 | disposition short-term general hospital (02) ==
LOC: ER 00:03
DX: L03.115 Cellulitis of right lower limb (principal); F17.210 Nicotine dependence, cigarettes, uncomplicated
CPT/HCPCS: 80048; 85027; 96365; 96375; 99285; J1170

== ENCOUNTER 2017-12-06 09:38 | Emergency (ER) | payer MEDICARE, MEDICAID ==
[2017-12-06] MEDS ORDERED: OXYMETAZOLINE HCL 15 ML BTL NASAL ONE (09:57)
[2017-12-06] MEDS ORDERED: TOPICAL LIDOCAINE W/ EPI 5 ML TOP ONE (10:02)
--- NOTE | 2017-12-06 10:08 | Emergency Department Record ---
History of Present Illness - General Chief complaint: Nosebleed/epistaxis Stated complaint: NOSE BLEED Time Seen by Provider: 12/06/17 09:50 Source: Patient Mode of Arrival: Ambulatory Limitations: No limitations - History of Present Illness Initial comments: The patient is here due to a nose bleed since about 4 am today out of the R nares. She denies any pain or injury and does take ASA and possibly plavix. Presently the bleeding has stopped. The patient did have a similar problem 6 weeks ago while in the hospital in [place] and did see an ENT for cautery but did not follow up with him as planned. She is a dialysis patient and does get run on Wed, Wed, and Wednesday. She denies any CP, SOB, or NAM. MD complaint: Epistaxis Onset/Timin -: Hour(s) Context-Epistaxis: Aspirin use, Other - Related Data Previous Rx's Medication Instructions Recorded Hydrocodone/Acetaminophen [[place] 1 tab PO Q8H PRN #15 tab 10/01/15 5mg/325mg] Allergies Allergy/AdvReac Type Severity Reaction Status Date / Time baclofen Allergy sleep Verified 02/28/17 12:57 walking cefaclor [From Ceclor] Allergy PT UNSURE Verified 02/28/17 12:57 OF REACTION clarithromycin [From Biaxin] Allergy PT UNSURE Verified 02/28/17 12:57 OF REACTION levofloxacin [From Levaquin] Allergy PT UNSURE Verified 02/28/17 12:57 OF REACTION morphine Allergy states it Verified 11/05/17 06:50 is a derivative of another allergic med. naproxen sodium Allergy PT UNSURE Verified 02/28/17 12:57 [From Anaprox] OF REACTION piroxicam [From Feldene] Allergy PT UNSURE Verified 02/28/17 12:57 OF REACTION red dye Allergy HIVES Verified 02/28/17 12:57 succinylcholine Allergy "super Verified 02/28/17 12:57 glued my lungs together" sulfamethoxazole Allergy PT UNSURE Verified 02/28/17 12:57 [From Bactrim] OF REACTION tramadol HCl [From Ultram] Allergy PT UNSURE Verified 02/28/17 12:57 OF REACTION trimethoprim [From Bactrim] Allergy PT UNSURE Verified 02/28/17 12:57 OF REACTION venom-honey bee Allergy HIVES Verified 02/28/17 12:57 [bee venom (honey bee)] cyclobenzaprine HCl AdvReac BEHAVIORAL Verified 02/28/17 12:57 [From Flexeril] CHANGES gabapentin [From Neurontin] AdvReac "bad mojo" Verified 02/28/17 12:57 promethazine HCl AdvReac restless Verified 02/28/17 12:57 [From Phenergan] legs Travel Screening - Travel/Exposure Within Last 30 Days Have you traveled within the last 30 days?: No - Travel/Exposure Within Last Year Have you traveled outside the [place] in the last year?: No - Additonal Travel Details Have you been exposed to anyone with a communicable illness?: No - Travel Symptoms Symptom Screening: None Review of Systems Constitutional: Denies: Chills, Fever Past Medical History - SOCIAL HISTORY Smoking Status: Current every day smoker - RESPIRATORY Hx Respiratory Disorders: Yes Hx COPD: Yes Hx Pulmonary Embolism: Yes - CARDIOVASCULAR Hx Cardio Disorders: Yes Hx Abnormal EKG: Yes Hx Cardiac Cath: Yes (5 stents) Hx Vascular Disease: (L arterial heart valve needs to be replaced) Comment:: heart murmur in April 2014, AAA - NEURO Hx Neuro Disorders: No Comment:: legally blind now 10/2017 - GI Hx GI Disorders: Yes Comment:: AAA - Hx Genitourinary Disorders: Yes Hx Dialysis: Yes (_W_) Hx Renal Disease: Yes (polycystic kidney disease;) Comment:: PKD. prolapsed bladder. end stage renal - ENDOCRINE Hx Endocrine Disorders: No - MUSCULOSKELETAL Hx Musculoskeletal Disorders: Yes Hx Arthritis: Yes Comment:: restless leg syndrome - PSYCH Hx Psych Problems: Yes Hx Depression: Yes (r/t dialysis) - HEMATOLOGY/ONCOLOGY Hx Hematology/Oncology Disorders: Yes Hx Clotting Problems: Yes Comment:: visually impared Family Medical History Any Significant Family History?: No Hx Alcohol Use: Father, Brother/Sister Hx Cancer: Grandparents Hx Dementia: Father Hx Diabetes: Mother Hx Heart Disease: Father, Mother Hx HTN: Mother Hx Kidney Disease: Mother, Brother/Sister, Grandparents Hx Resp Disorders: Father Hx Stroke: Father, Mother Physical Exam - General General Appearance: Alert, Cooperative, No acute distress - Head Head exam: Atraumatic, Normocephalic - Eye Eye exam: Normal appearance, PERRL - ENT Nasal Exam: Normal inspection. negative: Active bleeding, Discharge, Sinus tenderness Throat exam: Normal inspection. negative: Tonsillar erythema, Tonsillar exudate - Neck Neck exam: Normal inspection, Full ROM. negative: Tenderness - Respiratory Respiratory exam: Normal lung sounds bilaterally. negative: Respiratory distress - Cardiovascular Cardiovascular Exam: Regular rate, Normal rhythm, Systolic murmur (3/6 [place] LLSB (chronic)). negative: Normal heart sounds - Extremities Extremities exam: Normal inspection, Full ROM, Normal capillary refill. negative: Tenderness Course Vital Signs 12/06/17 09:41 Temperature 97.5 F L Pulse Rate 97 H Respiratory 20 Rate Blood Pressure 141/86 Pulse Ox 93 L - Reevaluation(s) Reevaluation #1: Procedure note: The R nares was anesth. with TLE and Afrin was used also. No bleeding source was definitively visualized. There was a spot in the middle of the anterior medial wall that could have been bleeding. It was cauterized with silver nitrate. 12/06/17 10:11 Reevaluation #2: The patient's nosebleed did restart at discharge very mildly from the R nares. Since no bleeding source was visualized a nasal sponge pack was placed with good result. The patient had no NAM or SOB after and was tolerating it well. She also has an ENT appointment in 3 days and possibly sooner if they are able to move her up. I did discuss taking Keflex with the patient due to having the pack in place. She has some at home and will take 500 mg after dialysis today and after on wed. 12/06/17 10:33 Disposition Disposition: Discharge Clinical Impression: Anterior epistaxis Disposition: Home, Self-Care Condition: (2) Stable Instructions: Nosebleed (ED) Additional Instructions: Please use [place] nasal [place] twice a day in the R nares for 3 days. Please see your ENT surgeon later this week. Return to the ER for any further problems or issues. Forms: Patient Portal Access Time of Disposition: 10:13 Quality - Quality Measures Quality Measures: N/A - Blood Pressure Screening View Details: Yes Does Patient Have Any of the Following: No Blood Pressure Classification: Pre-Hypertensive BP Reading Systolic Measurement: 141 Diastolic Measurement: 86 Screening for High Blood Pressure: < Pre-Hypertensive BP, F/U Documented > [ [id number]] Pre-Hypertensive Follow-up Interventions: Referral to alternative/primary care provider.
== END 2017-12-06 10:42 | disposition home or self-care (01) ==
LOC: ER 09:38
DX: R04.0 Epistaxis (principal); F17.210 Nicotine dependence, cigarettes, uncomplicated
CPT/HCPCS: 30901; 99283

== ENCOUNTER 2018-08-01 12:07 | Emergency (ER) | payer MEDICAID, MEDICARE ==
--- NOTE | 2018-08-01 12:29 | Emergency Department Record ---
History of Present Illness - General Chief complaint: Lower Extremity Pain Stated complaint: LEFT LEG INJURY Time Seen by Provider: 08/01/18 12:22 Source: Patient Mode of Arrival: Wheelchair Limitations: No limitations - History of Present Illness Initial comments: The patient was sleep walking last night and fell injuring her L lower leg and R hip. She is able to walk and put weight on but legs but is having mainly bad pain to the L lower leg. She denies any head or neck injury. MD Complaint: Extremity pain Onset/Timin -: Hour(s) Location: Left, Lower Leg Quality: Aching Consistency: Constant Associated Symptoms: Denies other symptoms - Related Data Previous Rx's Medication Instructions Recorded Hydrocodone/Acetaminophen [[place] 1 tab PO Q8H PRN #15 tab 10/01/15 5mg/325mg] Allergies Allergy/AdvReac Type Severity Reaction Status Date / Time baclofen Allergy sleep Verified 08/01/18 12:21 walking cefaclor [From Ceclor] Allergy PT UNSURE Verified 08/01/18 12:21 OF REACTION clarithromycin [From Biaxin] Allergy PT UNSURE Verified 08/01/18 12:21 OF REACTION levofloxacin [From Levaquin] Allergy PT UNSURE Verified 08/01/18 12:21 OF REACTION morphine Allergy states it Verified 08/01/18 12:21 is a derivative of another allergic med. naproxen sodium Allergy PT UNSURE Verified 08/01/18 12:21 [From Anaprox] OF REACTION piroxicam [From Feldene] Allergy PT UNSURE Verified 08/01/18 12:21 OF REACTION red dye Allergy HIVES Verified 08/01/18 12:21 succinylcholine Allergy "super Verified 08/01/18 12:21 glued my lungs together" sulfamethoxazole Allergy PT UNSURE Verified 08/01/18 12:21 [From Bactrim] OF REACTION tramadol HCl [From Ultram] Allergy PT UNSURE Verified 08/01/18 12:21 OF REACTION trimethoprim [From Bactrim] Allergy PT UNSURE Verified 08/01/18 12:21 OF REACTION venom-honey bee Allergy HIVES Verified 08/01/18 12:21 [bee venom (honey bee)] cyclobenzaprine HCl AdvReac BEHAVIORAL Verified 08/01/18 12:21 [From Flexeril] CHANGES gabapentin [From Neurontin] AdvReac "bad mojo" Verified 08/01/18 12:21 promethazine HCl AdvReac restless Verified 08/01/18 12:21 [From Phenergan] legs Travel Screening - Travel/Exposure Within Last 30 Days Have you traveled within the last 30 days?: No - Travel/Exposure Within Last Year Have you traveled outside the [place] in the last year?: No - Additonal Travel Details Have you been exposed to anyone with a communicable illness?: No - Travel Symptoms Symptom Screening: None Review of Systems Constitutional: Denies: Chills, Fever Eyes: Denies: Eye discharge ENT: Denies: Congestion Respiratory: Denies: Cough, Dyspnea Past Medical History - SOCIAL HISTORY Smoking Status: Current every day smoker Alcohol Use: None Drug Use: None - RESPIRATORY Hx Respiratory Disorders: Yes Hx COPD: Yes Hx Pulmonary Embolism: Yes - CARDIOVASCULAR Hx Cardio Disorders: Yes Hx Abnormal EKG: Yes Hx Cardiac Cath: Yes (5 stents) Hx Vascular Disease: (L arterial heart valve needs to be replaced) Comment:: heart murmur in April 2014, AAA - NEURO Hx Neuro Disorders: No Comment:: legally blind now 10/2017 - GI Hx GI Disorders: Yes Comment:: AAA - Hx Genitourinary Disorders: Yes Hx Dialysis: Yes (M_W_F) Hx Renal Disease: Yes (polycystic kidney disease;) Comment:: PKD. prolapsed bladder. end stage renal - ENDOCRINE Hx Endocrine Disorders: No - MUSCULOSKELETAL Hx Musculoskeletal Disorders: Yes Hx Arthritis: Yes Comment:: restless leg syndrome - PSYCH Hx Psych Problems: Yes Hx Depression: Yes (r/t dialysis) - HEMATOLOGY/ONCOLOGY Hx Hematology/Oncology Disorders: Yes Hx Clotting Problems: Yes Comment:: visually impared Family Medical History Any Significant Family History?: No Hx Alcohol Use: Father, Brother/Sister Hx Cancer: Grandparents Hx Dementia: Father Hx Diabetes: Mother Hx Heart Disease: Father, Mother Hx HTN: Mother Hx Kidney Disease: Mother, Brother/Sister, Grandparents Hx Resp Disorders: Father Hx Stroke: Father, Mother Physical Exam - General General Appearance: Alert, Oriented x3, Cooperative, No acute distress - Head Head exam: Atraumatic, Normocephalic, Normal inspection - Eye Eye exam: Normal appearance, PERRL - Neck Neck exam: Normal inspection, Full ROM. negative: Tenderness - Respiratory Respiratory exam: Normal lung sounds bilaterally. negative: Respiratory distress - Cardiovascular Cardiovascular Exam: Regular rate, Normal rhythm, Normal heart sounds - GI/Abdominal GI/Abdominal exam: Soft, Normal bowel sounds. negative: Tenderness - Extremities Extremities exam: Tenderness (There is significant tenderness and bruising to the proximal L lower leg laterally. There is no calf tenderness.). negative: Normal inspection, Calf tenderness Image of Full Body: 1 - Area of bruising and tenderness. Course Vital Signs 08/01/18 12:12 Temperature 97.9 F Pulse Rate 84 Respiratory 16 Rate Blood Pressure 161/78 Pulse Ox 94 L - Reevaluation(s) Reevaluation #1: On recheck the patient was sleeping in the room. I did explain to her the xrays did not demonstrate any acute abnormalities. She is to see her PCP later this week if needed and return to the ER for any worsening issues. 08/01/18 13:20 Medical Decision Making - Data Complexity MDM Data: X-Ray Ordered and/or Reviewed - Radiology Data Radiology results: Report reviewed (L lower leg and R hip: Neg for acute abnormalities per Rad.) Disposition Disposition: Discharge Clinical Impression: Contusion of leg, left Qualifiers: Encounter type: initial encounter Qualified Code(s): S80.12XA - Contusion of left lower leg, initial encounter Disposition: Home, Self-Care Condition: (2) Stable Instructions: Contusion in Adults (ED) Additional Instructions: Please take your home pain medicines and ice and elevate the L leg. Please see your family doctor for recheck in 3 days if not better. Return to the ER for any worsening symptoms. Forms: Patient Portal Access Time of Disposition: 13:22 Quality - Quality Measures Quality Measures: N/A - Blood Pressure Screening View Details: Yes Does Patient Have Any of the Following: Active Dx of HTN Blood Pressure Classification: Hypertensive Reading Systolic Measurement: 161 Diastolic Measurement: 78 Screening for High Blood Pressure: Patient Exclusion, Hx of HTN [G9744]
--- NOTE | 2018-08-03 08:42 | RADIOLOGY REPORT ---
EXAM: RIGHT HIP HISTORY: PAIN. TECHNIQUE: A single AP view of the pelvis and AP and frog leg views of the right hip were performed. FINDINGS: There is osteopenia. No evidence of fracture or dislocation. No lytic or blastic lesion. There is peripheral vascular disease. IMPRESSION: 1. OSTEOPENIA. NO ACUTE PROCESS. 2. PERIPHERAL VASCULAR DISEASE. JOB NUMBER: [id number] MTDD
--- NOTE | 2018-08-03 08:44 | RADIOLOGY REPORT ---
EXAM: LEFT LOWER EXTREMITY HISTORY: PAIN. TECHNIQUE: AP and lateral views of the left lower extremity were performed. FINDINGS: There soft tissue calcification present. No evidence of fracture or dislocation. There is peripheral vascular disease. IMPRESSION: SOFT TISSUE CALCIFICATION. PERIPHERAL VASCULAR DISEASE. NO OSSEOUS ABNORMALITY. JOB NUMBER: [id number] MTDD
== END 2018-08-01 13:23 | disposition home or self-care (01) ==
LOC: ER 12:07
DX: S80.12XA Contusion of left lower leg, initial encounter (principal); M25.551 Pain in right hip; J44.9 Chronic obstructive pulmonary disease, unspecified; F17.210 Nicotine dependence, cigarettes, uncomplicated; W19.XXXA Unspecified fall, initial encounter; Y93.84 Activity, sleeping
CPT/HCPCS: 99283